=== PATIENT | female | born 2000 | race Caucasian/White ===

== ENCOUNTER 2018-07-01 17:57 | Emergency (ER) | payer MEDICAID ==
--- NOTE | 2018-07-01 21:14 | EDPHY ---
General Time Seen by Provider: 07/01/18 20:45 Narrative: CLINICAL IMPRESSION: Benign paroxysmal positional vertigo ASSESSMENT/PLAN: 18-year-old female presents to the emergency department with vague complaints of a tremulous sensation in her brain, worse with movement of the head for the last 2 days. Patient is alert, oriented with no focal neurological deficits, NIH score of 0 with no limb ataxia. Vital signs stable. No complaints of chest pain, shortness of breath, recent illness, GI complaints, chronic vomiting or diarrhea. She was found to have mild rotary nystagmus with [place]- Hallpike testing and the Franki maneuver was performed to the right. I do not suspect central causes for vertigo at this time. She has no coinciding complaints of headache, neck pain, tinnitus, hearing loss, acute vision changes , paresthesias, or unilateral weakness. Supportive care discussed at home, ENT follow-up recommended, PCP follow-up encouraged, warning signs return to ED sooner outlined and discharge. DIFFERENTIAL DX: Dizziness including but not limited to peripheral and central causes of vertigo , orthostatic causes including dehydration, and blood loss. ED PROCEDURES: See lab and/or imaging results below CHIEF COMPLAINT: Vertigo, dizziness HPI: 18-year-old otherwise healthy female presents to the emergency department with complaints of a"tremory sensation inside my brain". She does not report headache. She states this is not a spinning sensation but that she feels like her brain is not working right. No associated vision or hearing change, tinnitus, ear pain, recent URI symptoms. No nausea, vomiting, diarrhea, abdominal pain or concern for dehydration. Symptoms are not correlated with going from sitting to standing quickly. She has no associated chest pain or shortness of breath. No history of anemia. She has never had symptoms like this before. No history of congenital heart disease or family history of cardiac problems at a young age. She is taking an SSRI but has been on the same dose for the last 2 months and states she has experienced dizziness from these in the past and this sensation feels different. This sensation is worsened by movement of her head. 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 No reported head trauma PAST MEDICAL HISTORY: Depression See triage summary and nurse notes for addition applicable history Pertinent Past Surgical History: None reported Family History: No family history of cardiac disease Social History: Otherwise healthy, up-to-date on vaccines, denies illicit drugs REVIEW OF SYSTEMS: A full 10 point review of systems was negative except for those mentioned in HPI. PHYSICAL EXAM: General Appearance: Alert, oriented, appropriate, cooperative, NAD, well hydrated, non-toxic appearing, VSS, no hypoxia. HEENT: TMs are clear bilaterally no perforation or FB, no injection, no evidence of serous or mucopurulent otitis. Oropharynx clear is no erythema or exudates, no tonsillar hypertrophy or asymmetry. Dentition without abnormality. Eyes: PERRLA, no acute vision change, mild rotary nystagmus noted with [place]- Hallpike testing to the right, no swelling, discharge, pain or photosensitivity. Conjunctiva pink, no pallor or injection Neck: Supple, nontender, no lymphadenopathy, no midline pain, FROM, no meningismus. Respiratory: There are no retractions, lungs are clear to auscultation. Cardiac: Regular rate and rhythm, no murmurs or gallops. Gastrointestinal: Abdomen is soft, nontender, bowel sounds normal, no masses/ hernia, no rigidity, guarding or focal peritoneal findings. Skin: Warm, dry, no rashes, no nodules on palpation. Neuro: Alert and oriented x3, cranial nerves 2-12 grossly intact, NIH score 0 with no limb ataxia. MEDICAL DECISION MAKING: Patient was seen independently. Secondary supervising physician at time of evaluation was: Dr Mata. Diagnosis: Benign paroxysmal positional vertigo . New, requires workup Summary: See Assessment and Plan for summary of ED visit Patient Progress: Stable. - History Smoking Status: Never smoked - Objective Vital Signs: Initial Vital Signs Temperature (C) 37 C 07/01/18 19:10 Heart Rate 75 07/01/18 19:10 Respiratory Rate 16 07/01/18 19:10 Blood Pressure 123/76 H 07/01/18 19:10 O2 Sat (%) 98 07/01/18 19:10 O2 Delivery Mode Room Air Allergies/Adverse Reactions: No Known Allergies Allergy (Unverified 07/01/18 19:09) Home Medications: Medication Instructions Recorded Escitalopram Oxalate 07/01/18 Ranitidine HCl 07/01/18 Departure - Departure Disposition: Home, Routine, Self-Care Clinical Impression: Benign paroxysmal positional vertigo Condition: Good Instructions: Benign Paroxysmal Positional Vertigo (ED) Additional Instructions: DISCHARGE INSTRUCTIONS FROM YOUR DOCTOR Thank you for visiting our emergency department today. Please keep in mind that discharge from the emergency department does not mean that there is nothing wrong - it simply means that we have not identified an emergency condition that requires further evaluation or treatment in the hospital. You should always plan to follow up with primary care for re-evaluation of your condition in the next 2-3 days. If you have been referred to a specialist, please call as soon as possible (today or tomorrow) to schedule your follow up appointment at the appropriate time. YOU WERE DIAGNOSED WITH BENIGN POSITIONAL VERTIGO. THE FRANKI MANEUVER WAS PERFORMED TONIGHT. PLEASE FOLLOW-UP WITH ENT. A REFERRAL WAS GIVEN. PLEASE SLEEP AT 45 DEGREE ANGLE FOR THE NEXT 2 DAYS, GRADUATE TO 2 PILLOWS, DO NOT LIE FLAT FOR 5 DAYS. AVOID YOGA OR ANY ACTIVITIES WITH HER HEAD BELOW YOUR HEART. RETURN TO THE EMERGENCY DEPARTMENT FOR WORSENING OR PERSISTENT VERTIGO, HEADACHES, ALTERED MENTAL STATUS, VOMITING, SEIZURE ACTIVITY, FEVER OR ANY OTHER CONCERNS. People present with illnesses and injuries in different ways, and it is always possible that we have missed something. You may always return for re-evaluation if symptoms worsen or if they are not improving or if you develop new/different symptoms. Again, thank you for choosing our emergency department. We hope that you feel better. Referrals: Acosta Cruz MD [Primary Care Provider] - As per Instructions Chris Stapleton MD [Medical Doctor] - As per Instructions
[2018-07-01 21:23] VITALS: BP 118/75
== END 2018-07-01 21:23 | disposition home or self-care (01) ==
DX: H81.10 Benign paroxysmal vertigo, unspecified ear (principal)